=== PATIENT | female | born 1960 | race Caucasian/White ===

== ENCOUNTER → 2016-12-05 | Outpatient (CLI) | payer OTHER ==
[~2016-12-05] MED LIST: ASCO500C; ESOM40CA; IBUP200T43 PO; LEVO137T3; OMEG500C3; [UNRECOGNIZED DRUG - CODE]; [UNRECOGNIZED DRUG - OTHER]
--- NOTE | 2016-12-05 16:57 | RAD ---
Right thumb, 3 views, 12/05/2016: History: Pain There is patchy bony demineralization. No fracture or dislocation is evident. There is minimal degenerative change at the MCP, CMC and IP joints. IMPRESSION: No acute bony abnormality is detected.
== END | disposition home or self-care (01) ==
LOC: DXRADRC 15:01
PROVIDERS: ATTEND Nurse Practitioner Family
DX: M79.644 Pain in right finger(s) (principal)
CPT/HCPCS: 73140

== ENCOUNTER 2017-02-11 02:38 | Emergency (ER) | payer OTHER ==
[~2017-02-11] VITALS: Ht 168.9 cm; Wt 68.0 kg
[2017-02-11 02:38] VITALS: BP 129/85
--- NOTE | 2017-02-11 02:55 | ED.ADGEN ---
Past History Past Medical History: Hypothyroid Past Surgical History: Appendectomy, Tubal ligation, Other Smoking: Less than 1pk/day Alcohol Use: Occasionally Drug Use: None Adult General HPI HPI Patient is a 56-year-old woman, with history of hypothyroidism, prediabetes, hypercholesterolemia, and tobacco use, who presents emergency Department with a complaint of "feeling like my heart is beating out of my chest", but has been occurring over the past several weeks. Patient states tenderness been essentially constant since it began, she denies any initial triggers that she can recall. Currently patient states she is expressing the symptoms, heart rate in the monitor is noted to be sinus rhythm in the 70s to 80s. Blood pressure is 125/83, oxygen saturation is 97% on room air. Respiratory rate is 18 and unlabored. Patient states that her symptoms have been persistent over the past several weeks, she states that she when she got up to use the restroom tonight, she felt like she "couldn't take it anymore" which prompted her to come to the ED. She also states that she been experiencing some soreness in her right neck, over the past 2 days. This is been intermittent, worse with motion, and states that the symptoms feel better when she presses against the muscles of the neck, soreness extends down to clavicle level. Denies any injuries or inciting events. States that she recently got a new job and insurance, and has not spoken to her primary care provider about these issues. She states that she has been compliant with all medications as prescribed. No shortness of breath, nausea or vomiting, no diaphoresis, no lightheadedness, dizziness, presyncopal or syncopal events, no injuries, no travel or surgery, no rashes, no upper or lower respiratory type symptoms, no swelling of the extremities, no urinary symptoms or GI complaints. She denies similar symptoms previously. His face cigarette smoker stated, states that she did have "a few drinks tonight", states she does not drink daily, denies any drug use. Review of Systems Review of Systems Constitutional: Denies fever or chills [] Eyes: Denies change in visual acuity, redness, or eye pain [] HENT: Denies nasal congestion or sore throat [] Respiratory: Denies cough or shortness of breath [] Cardiovascular: Palpitations. GI: Denies abdominal pain, nausea, vomiting, bloody stools or diarrhea [] : Denies dysuria or hematuria [] Musculoskeletal: Denies back pain or joint pain [] Integument: Denies rash or skin lesions [] Neurologic: Denies headache, focal weakness or sensory changes [] Endocrine: Denies polyuria or polydipsia [] Current Medications Current Medications Current Medications Medications (Trade) Dose Ordered Sig/Elizabeth Start Time Stop Time Status Last Admin Dose Admin Acetaminophen (Tylenol) 500 mg STK-MED ONCE 02/11/17 02:58 02/11/17 02:59 DC Fentanyl Citrate (Fentanyl 2ml Vial) 25 mcg PRN Q15MIN PRN 02/11/17 03:00 02/12/17 02:59 Nitroglycerin (Nitrostat) 0.4 mg PRN Q5MIN PRN 02/11/17 03:00 02/12/17 02:59 Allergies Allergies Allergies Coded Allergies Type Severity Reaction Last Updated Verified codeine Allergy Unknown 09/24/13 Yes morphine Allergy Unknown 09/24/13 Yes Physical Exam Physical Exam Constitutional: Well developed, well nourished, no acute distress, non-toxic appearance. [] HENT: Normocephalic, atraumatic, bilateral external ears normal, oropharynx moist, no oral exudates, nose normal. [] Eyes: PERRLA, EOMI, conjunctiva normal, no discharge. [] Neck: Normal range of motion, patient with tenderness to palpation along the sternocleidomastoid on the right side beginning at the insertion point and extending down to the patient's clavicle. There is no evidence of trauma or other abnormality, no tissue tension or muscle spasm, no lymphadenopathy or other concerning findings, supple, no stridor. [] Cardiovascular:Heart rate regular rhythm, no murmur, S1, S2, rubs or gallops. No chest wall crepitus or tenderness. Pulses are equal 3+ in all 4 extremities. [] Lungs & Thorax: Bilateral breath sounds clear to auscultation, no wheezing, rhonchi, rales. No chest wall tenderness or crepitus. No lesions are normalities identified. [] Abdomen: Bowel sounds normal, soft, no rebound, rigidity, no guarding, no tenderness, no masses, no pulsatile masses. [] Skin: Warm, dry, no erythema, no rash. [] Back: No tenderness, no CVA tenderness. [] Extremities: No tenderness, no cyanosis, no clubbing, ROM intact, no edema. Negative Homans sign. Neurologic: Alert and oriented X 3, normal motor function, normal sensory function, no focal deficits noted. [] Psychologic: Affect normal, judgement normal, mood normal. [] Current Patient Data Vital Signs Vital Signs Date Time Temp Pulse Resp B/P (MAP) Pulse Ox O2 Delivery O2 Flow Rate FiO2 02/11/17 02:38 98.0 79 18 96 Room Air Lab Results Laboratory Tests Test 02/11/17 02:50 02/11/17 02:55 White Blood Count 5.4 x10^3/uL (4.0-11.0) Red Blood Count 4.23 x10^6/uL (3.50-5.40) Hemoglobin 13.6 g/dL (12.0-15.5) Hematocrit 39.2 % (36.0-47.0) Mean Corpuscular Volume 93 fL (79-100) Mean Corpuscular Hemoglobin 32 pg (25-35) Mean Corpuscular Hemoglobin Concent 35 g/dL (31-37) Red Cell Distribution Width 12.2 % (11.5-14.5) Platelet Count 226 x10^3/uL (140-400) Neutrophils (%) (Auto) 30 % (31-73) L Lymphocytes (%) (Auto) 57 % (24-48) H Monocytes (%) (Auto) 8 % (0-9) Eosinophils (%) (Auto) 3 % (0-3) Basophils (%) (Auto) 1 % (0-3) Neutrophils # (Auto) 1.6 x10^3uL (1.8-7.7) L Lymphocytes # (Auto) 3.1 x10^3/uL (1.0-4.8) Monocytes # (Auto) 0.4 x10^3/uL (0.0-1.1) Eosinophils # (Auto) 0.2 x10^3/uL (0.0-0.7) Basophils # (Auto) 0.1 x10^3/uL (0.0-0.2) Sodium Level 143 mmol/L (136-145) Potassium Level 3.6 mmol/L (3.5-5.1) Chloride Level 105 mmol/L (98-107) Carbon Dioxide Level 28 mmol/L (21-32) Anion Gap 10 (6-14) Blood Urea Nitrogen 7 mg/dL (7-20) Creatinine 0.8 mg/dL (0.6-1.0) Estimated GFR (Cockcroft-Gault) 73.7 BUN/Creatinine Ratio 9 (6-20) Glucose Level 99 mg/dL (70-99) Calcium Level 9.2 mg/dL (8.5-10.1) Total Bilirubin 0.4 mg/dL (0.2-1.0) Aspartate Amino Transferase (AST) 11 U/L (15-37) L Alanine Aminotransferase (ALT) 20 U/L (14-59) Alkaline Phosphatase 88 U/L (46-116) Troponin I Quantitative < 0.017 ng/mL (0-0.055) HL-Qep-D-Type Natriuretic Peptide 63 pg/mL (0-124) Total Protein 7.3 g/dL (6.4-8.2) Albumin 4.0 g/dL (3.4-5.0) Albumin/Globulin Ratio 1.2 (1.0-1.7) Ethyl Alcohol Level < 10 mg/dL (0-10) Urine Opiates Screen Neg (NEG) Urine Methadone Screen Neg (NEG) Urine Barbiturates Neg (NEG) Urine Phencyclidine Screen Neg (NEG) Urine Amphetamine/Methamphetamine Neg (NEG) Urine Benzodiazepines Screen Neg (NEG) Urine Cocaine Screen Neg (NEG) Urine Cannabinoids Screen Neg (NEG) Urine Ethyl Alcohol Pos (NEG) EKG EKG EC: Sinus rhythm, heart rate 75 beats minute, upright axis, QTC of 447, ID 160, QRS of 86, no ST elevations or depressions, no evidence of acute ST abnormalities. No prior for comparison. As interpreted by me. Radiology/Procedures Radiology/Procedures Chest x-ray: One view: Hyperinflation with mild flattening of the diaphragms bilaterally, normal cardiac silhouette, no infiltrates or effusions, no pneumothorax, no soft tissue or bony abnormalities identified. When compared to chest x-ray from 07/13/2012, no significant changes identified aside from mild increase in hyperinflation. As interpreted by me. [] Course & Med Decision Making Course & Med Decision Making Pertinent Labs and Imaging studies reviewed. (See chart for details) Patient with heart rate in the 70s and 80s while she states she is experiencing the palpitations in the ED. After discussion at bedside, laboratory studies, ECG and chest x-ray obtained. As stated, symptoms been constant for the past several weeks. ECG reveals sinus rhythm with a heart rate of 75, with no abnormalities identified. Chest x-ray reveals evidence of mild hyperinflation no other concerning findings identified. Troponin is negative, patient's UDS was positive for alcohol, but it is less than 10 stated she is clinically sober and appropriate in the ED. Patient received acetaminophen in the emergency department, reevaluation she states that the soreness in her neck is improved. Area is point tender, beginning at the insertion of the sternocleidomastoid the right, I do not believe is indicative of atypical cardiac presentation. She states that she has had "bleeding", with aspirin previously and was told not to use aspirin any longer by her primary care provider. Patient denies any family history of cardiac disease or sudden cardiac , she is not previously seen a glass robot operator. TSH is a send out test, patient informed the results will be obtained tomorrow, will be contacted with any concerning findings. I discussed with the patient that although she is experiencing a feeling of palpitations, heart rate, which we are watching on the monitor is in sinus rhythm in the 70s. Patient states understanding of this finding. She had not experienced any diaphoresis, S pain, shortness breath, or presyncope or other concerning findings. No other concerning history relayed. On examination and her evaluation the ED, there is no evidence of a concerning cardiac or pulmonary etiology for her symptoms. Patient is agreeable to plan to be discharged home, she states that she currently has primary care provider as stated, who she is only seen once previously, Dr. Franco, and she'll be able to follow-up with a glass robot operator for additional evaluation. I did provide contact information for Dr. Lake of cardiology, instructed for her to call in the morning to schedule additional evaluation, although I do not believe that there is any indication for additional evaluation in or from the ED currently, due to her age and predisposing factors, cardiac evaluation is appropriate. Patient declined any other complaints or concerns at this time. Patient voices understanding and agreement with this plan. Patient's boyfriend is here, and she is ready to go home. We did discuss concerning symptoms that prompt return to the emergency department any time, patient voiced understanding and agreement with these instructions well. Discharged home with plan as above in stable condition. Final Impression Final Impression [] Problems: Dragon Disclaimer Dragon Disclaimer This electronic medical record was generated, in whole or in part, using a voice recognition dictation system. Departure: Impression: Primary Impression: Palpitation Disposition: 01 HOME, SELF-CARE Condition: IMPROVED TEETEE CASPER DO Feb 11, 2017 02:55
[2017-02-11] MEDS ORDERED: ACETAMINOPHEN 500 MG TABLET PO ONE ×2 (02:58→03:15)
[2017-02-11] MEDS ORDERED: fentaNYL PF 100 MCG/2 ML VIAL IV PRN (03:00)
[2017-02-11] MEDS ORDERED: NITROGLYCERIN SUBLINGUAL 0.4 MG BOTTLE OF 25. SL PRN (03:00)
[2017-02-11 03:09] LABS: BASO # 0.1 x10^3/uL (0.0-0.2); BASO % 1 % (0-3); EOS # 0.2 x10^3/uL (0.0-0.7); EOS % 3 % (0-3); HEMATOCRIT 39.2 % (36.0-47.0); HEMOGLOBIN 13.6 g/dL (12.0-15.5); LYMPH # 3.1 x10^3/uL (1.0-4.8); LYMPH % 57 % (24-48); MEAN CORPUSCULAR HEMOGLOBIN 32 pg (25-35); MEAN CORPUSCULAR HGB CONC 35 g/dL (31-37); MEAN CORPUSCULAR VOLUME 93 fL (79-100); MONO # 0.4 x10^3/uL (0.0-1.1); MONO % 8 % (0-9); NEUT # 1.6 x10^3uL (1.8-7.7); NEUT % 30 % (31-73); PLATELET COUNT 226 x10^3/uL (140-400); RED BLOOD COUNT 4.23 x10^6/uL (3.50-5.40); RED CELL DISTRIBUTION WIDTH 12.2 % (11.5-14.5); WHITE BLOOD COUNT 5.4 x10^3/uL (4.0-11.0)
[2017-02-11] MEDS ORDERED: ALBU8.5H8 INH (03:12)
[2017-02-11] MEDS ORDERED: MELO15TA23 PO (03:12)
[2017-02-11] MEDS ORDERED: PANT20TA58 PO (03:12)
[2017-02-11] MEDS ORDERED: MOME17SP NS (03:12)
[2017-02-11 03:26] LABS: BARBITURATES NEG (NEG); BENZODIAZEPINES NEG (NEG); CANNABINOIDS NEG (NEG); COCAINE NEG (NEG); METHADONE NEG (NEG); OPIATES NEG (NEG); PHENCYCLIDINE NEG (NEG)
[2017-02-11 03:34] LABS: AMPHETAMINE/METHAMPHETAMINE NEG (NEG)
[2017-02-11 03:35] LABS: ALBUMIN/GLOBULIN RATIO 1.2 (1.0-1.7); CALCIUM 9.2 mg/dL (8.5-10.1); CREATININE 0.8 mg/dL (0.6-1.0); GFR 73.7; POTASSIUM 3.6 mmol/L (3.5-5.1); TOTAL BILIRUBIN 0.4 mg/dL (0.2-1.0); TOTAL PROTEIN 7.3 g/dL (6.4-8.2)
--- NOTE | 2017-02-11 05:59 | EKG ---
[address] [address] Test Date: 2017-02-11 Test Time: 02:57:51 Pat Name: ESHA CANALES Department: Room: Gender: F Care Coordinator: : 1960 Requested By: TEETEE CASPER Order Number: [id number] Reading MD: Measurements Intervals [place] Rate: 75 P: 66 [place]: 160 QRS: 55 QRSD: 86 T: 37 QT: 398 QTc: 447 Interpretive Statements SINUS RHYTHM NORMAL ECG RI6.01 Unconfirmed report No previous ECG available for comparison
--- NOTE | 2017-02-11 07:15 | RAD ---
Portable chest, 02/11/2017: History: Chest pain, palpitations Comparison is made to a study from 07/21/2012. The heart size and pulmonary vascularity are normal. There is scarring over the pulmonary apices. No acute infiltrate is seen. There is no evidence of pleural fluid. IMPRESSION: No acute cardiopulmonary abnormality is detected.
== END 2017-02-11 04:10 | disposition home or self-care (01) ==
LOC: ER 02:38
DX: R00.2 Palpitations (principal); M54.2 Cervicalgia; E03.9 Hypothyroidism, unspecified; F17.200 Nicotine dependence, unspecified, uncomplicated; Z88.6 Allergy status to analgesic agent; Z88.5 Allergy status to narcotic agent
CPT/HCPCS: 36415; 71010; 80053; 80305; 80320; 83880; 84443; 84484; 85027; 93005; G0480; G0481; 99285-25

== ENCOUNTER → 2017-03-13 | Outpatient (CLI) | payer OTHER ==
[2017-02-11 02:38] VITALS: BP 129/85
[~2017-03-13] MED LIST changes: +ALBU8.5H8 INH; +MELO15TA23 PO; +MOME17SP NS; +PANT20TA58 PO
--- NOTE | 2017-03-13 15:43 | RAD ---
INDICATION: TOBACCO ABUSE X 20 YRS COMPARISON: 02/11/2017 FINDINGS: 2 views of chest obtained. No focal airspace consolidation. Mediastinal contour is unremarkable. There is some calcific atherosclerosis suspected. No gross osseous destructive lesion. Degenerative changes spine. IMPRESSION: No definite focal airspace consolidation. Suspected apical pleural thickening or scarring.
== END | disposition home or self-care (01) ==
LOC: DXRADRC 15:16
PROVIDERS: ATTEND Nurse Practitioner Family
DX: M47.899 Other spondylosis, site unspecified (principal); Z72.0 Tobacco use
CPT/HCPCS: 71020

== ENCOUNTER → 2017-10-29 | Outpatient (CLI) | payer OTHER ==
[~2017-10-29] MED LIST changes: -IBUP200T43 PO; +IBUP200T44 PO
--- NOTE | 2017-10-30 12:09 | RAD ---
DATE: October 29, 2017 EXAM: MAMMO RUFUS SCREENING BILATERAL HISTORY: Screening study. COMPARISON: 2014 and 2016 This study was interpreted with the benefit of Computerized Aided Detection (CAD). 2-D digital mammographic views of both breasts were performed in the CC and MLO projections. 3-D digital tomosynthesis images of both breasts were performed in the CC and MLO projections and reviewed on a computer workstation. FINDINGS: The breast parenchyma is very dense. There are no dominant suspicious masses, suspicious microcalcifications or evidence of architectural distortion. IMPRESSION: No mammographic indicators for malignancy. BI-RADS CATEGORY: 1 NEGATIVE RECOMMENDED FOLLOW-UP: 12M 12 MONTH FOLLOW-UP PQRS compliance statement: Patient information was entered into a reminder system with a target due date October 30, 2018 for the next mammogram. Mammography is a sensitive method for finding small breast cancers, but it does not detect them all and is not a substitute for careful clinical examination. A negative mammogram does not negate a clinically suspicious finding and should not result in delay in biopsying a clinically suspicious abnormality. "Our facility is accredited by the [employer] Mammography Program." The patient's breast density may affect the ability of mammography to detect breast cancer. There are 4 categories of breast density, A, B, C and D. Breast density A means that most of the breast tissue is replaced with adipose tissue and therefore is not dense. Breast density B means that the breast tissue is mildly dense and scattered. Breast density C means that the breast tissue is heterogeneously dense. Breast density D means that the breast tissue is very dense. Breast densities especially C and D may decrease the sensitivity of mammography to detect breast cancer. Therefore, the patient may benefit from 3-D breast mammography (3D breast tomography) as a part of their screening mammogram. Insurance may or may not pay for this additional imaging. The patient's breast density based on today's mammogram is category D.
== END | disposition home or self-care (01) ==
LOC: MAMMO 14:58
PROVIDERS: ATTEND Nurse Practitioner Family
DX: Z12.31 Encounter for screening mammogram for malignant neoplasm of breast (principal); F17.200 Nicotine dependence, unspecified, uncomplicated
CPT/HCPCS: 77063; 77067

== ENCOUNTER 2018-05-06 12:10 | Observation (INO) | payer OTHER ==
[~2018-05-06] VITALS: Ht 170.2 cm; Wt 67.2 kg
[2018-05-06 12:37] LABS: BASO # 0.1 x10^3/uL (0.0-0.2); BASO % 1 % (0-3); EOS # 0.1 x10^3/uL (0.0-0.7); EOS % 1 % (0-3); HEMATOCRIT 40.6 % (36.0-47.0); HEMOGLOBIN 14.1 g/dL (12.0-15.5); LYMPH % 45 % (24-48); MEAN CORPUSCULAR HEMOGLOBIN 32 pg (25-35); MEAN CORPUSCULAR HGB CONC 35 g/dL (31-37); MEAN CORPUSCULAR VOLUME 93 fL (79-100); MONO # 0.6 x10^3/uL (0.0-1.1); MONO % 9 % (0-9); NEUT % 45 % (31-73); PLATELET COUNT 251 x10^3/uL (140-400); RED BLOOD COUNT 4.38 x10^6/uL (3.50-5.40); RED CELL DISTRIBUTION WIDTH 12.3 % (11.5-14.5); WHITE BLOOD COUNT 6.8 x10^3/uL (4.0-11.0)
[2018-05-06 12:50] LABS: ALBUMIN 4.5 g/dL (3.4-5.0); CALCIUM 9.6 mg/dL (8.5-10.1); CREATININE 0.9 mg/dL (0.6-1.0); DIRECT BILIRUBIN 0.1 mg/dL (0.0-0.2); GFR 63.9; POTASSIUM 3.6 mmol/L (3.5-5.1); TOTAL BILIRUBIN 0.6 mg/dL (0.2-1.0); TOTAL PROTEIN 7.8 g/dL (6.4-8.2)
--- NOTE | 2018-05-06 12:55 | PHYS DOC ---
Past History Past Medical History: Arthritis, Asthma, GERD, Hypothyroid, Migraines, Other Past Surgical History: Appendectomy, Tubal ligation, Other Smoking: Less than 1pk/day Alcohol Use: Occasionally Drug Use: None Adult General Chief Complaint Chief Complaint: CHEST PAIN HPI HPI This is a pleasant 58-year-old female presenting the emergency department today with a pressure along the chest that radiates into her back and neck. This been present for about 24 hours. Comes and goes. She is never seen a stator connector or been diagnosed with heart disease. She has a history of high blood cholesterol, family history of heart disease, and history of smoking. She denies unilateral leg swelling hemoptysis or personal history of blood clotting disorders. She denies having diabetes or hypertension. Review of systems is negative for abdominal pain nausea vomiting. She denies diaphoresis. All other review of systems is negative unless otherwise noted in history of present illness. ED course: 58-year-old female presenting the emergency department with chest pain. EKG obtained and reviewed by myself shows sinus rhythm with a regular rate. ST segments show mild ST depression in lead V4 and V5 without any reciprocal elevation. Troponin is negative. Otherwise blood work is unremarkable. I spoke with cardiology team, Kelly CAPUTO. I asked whether they preferred the patient to be admitted to [facility] where there is a catheter lab or here at [facility]. Cardiology recommended [facility] for serial troponins and probable stress test. I spoke with Dr. jimenes accepts patient for admission. Basic bridge orders placed. Review of Systems Review of Systems SEE ABOVE. Allergies Allergies Allergies Coded Allergies Type Severity Reaction Last Updated Verified codeine Allergy Unknown 09/24/13 Yes morphine Allergy Unknown 09/24/13 Yes Physical Exam Physical Exam SEE ABOVE Constitutional: Well developed, well nourished, no acute distress, non-toxic appearance. HENT: Normocephalic, atraumatic, bilateral external ears normal, oropharynx moist, no oral exudates, nose normal. [] Eyes: PERRLA, EOMI, conjunctiva normal, no discharge. Neck: Normal range of motion, no tenderness, supple, no stridor. [] Cardiovascular:Heart rate regular rhythm, no murmur Lungs & Thorax: Bilateral breath sounds clear to auscultation [] Abdomen: Bowel sounds normal, soft, no tenderness, no masses, no pulsatile masses. [] Skin: Warm, dry, no erythema, no rash. [] Back: No tenderness, no CVA tenderness. Extremities: No tenderness, no cyanosis, no clubbing, ROM intact, no edema. [] Neurologic: Alert and oriented X 3, normal motor function, normal sensory function, no focal deficits noted. [] Psychologic: Affect normal, judgement normal, mood normal. [] Current Patient Data Vital Signs Vital Signs Date Time Temp Pulse Resp B/P (MAP) Pulse Ox O2 Delivery O2 Flow Rate FiO2 05/06/18 12:29 98.2 81 18 98 Room Air Lab Results Laboratory Tests Test 05/06/18 12:26 White Blood Count 6.8 x10^3/uL (4.0-11.0) Red Blood Count 4.38 x10^6/uL (3.50-5.40) Hemoglobin 14.1 g/dL (12.0-15.5) Hematocrit 40.6 % (36.0-47.0) Mean Corpuscular Volume 93 fL (79-100) Mean Corpuscular Hemoglobin 32 pg (25-35) Mean Corpuscular Hemoglobin Concent 35 g/dL (31-37) Red Cell Distribution Width 12.3 % (11.5-14.5) Platelet Count 251 x10^3/uL (140-400) Neutrophils (%) (Auto) 45 % (31-73) Lymphocytes (%) (Auto) 45 % (24-48) Monocytes (%) (Auto) 9 % (0-9) Eosinophils (%) (Auto) 1 % (0-3) Basophils (%) (Auto) 1 % (0-3) Neutrophils # (Auto) 3.0 x10^3uL (1.8-7.7) Lymphocytes # (Auto) 3.0 x10^3/uL (1.0-4.8) Monocytes # (Auto) 0.6 x10^3/uL (0.0-1.1) Eosinophils # (Auto) 0.1 x10^3/uL (0.0-0.7) Basophils # (Auto) 0.1 x10^3/uL (0.0-0.2) Sodium Level 138 mmol/L (136-145) Potassium Level 3.6 mmol/L (3.5-5.1) Chloride Level 102 mmol/L (98-107) Carbon Dioxide Level 29 mmol/L (21-32) Anion Gap 7 (6-14) Blood Urea Nitrogen 9 mg/dL (7-20) Creatinine 0.9 mg/dL (0.6-1.0) Estimated GFR (Cockcroft-Gault) 63.9 Glucose Level 95 mg/dL (70-99) Calcium Level 9.6 mg/dL (8.5-10.1) Total Bilirubin 0.6 mg/dL (0.2-1.0) Direct Bilirubin 0.1 mg/dL (0.0-0.2) Aspartate Amino Transferase (AST) 18 U/L (15-37) Alanine Aminotransferase (ALT) 31 U/L (14-59) Alkaline Phosphatase 93 U/L (46-116) Total Protein 7.8 g/dL (6.4-8.2) Albumin 4.5 g/dL (3.4-5.0) Lipase 127 U/L (73-393) EKG EKG [] Radiology/Procedures Radiology/Procedures [] Course & Med Decision Making Course & Med Decision Making Pertinent Labs and Imaging studies reviewed. (See chart for details) [] Dragon Disclaimer Dragon Disclaimer This electronic medical record was generated, in whole or in part, using a voice recognition dictation system. Departure Departure: Impression: Primary Impression: Chest pain Disposition: ADMITTED INPATIENT Admitting Physician: Other ([email or web address]) Condition: STABLE Referrals: HI SIMMONS (PCP) TOBIN DURAN MD May 06, 2018 12:55
--- NOTE | 2018-05-06 12:56 | RAD ---
EXAM: Chest, single view. HISTORY: Shortness of breath. COMPARISON: None. FINDINGS: A frontal view of the chest is obtained. There is no infiltrate, pleural effusion or pneumothorax. The heart is normal in size. There are stable nodular opacities within the right upper lobe likely due to calcified granulomas or partially calcified pleural plaque. IMPRESSION: No acute pulmonary finding. Electronically signed by: Paola Lenz MD (05/06/2018 12:53 PM) [place] [id number]
--- NOTE | 2018-05-06 14:10 | EKG ---
[address] [address] Test Date: 2018-05-06 Test Time: 12:18:30 Pat Name: ESHA CANALES Department: Room: Gender: F Courtesy Bus Driver: : 1960 Requested By: TOBIN DURAN Order Number: [id number] Reading MD: Thaddeus Martin MD Measurements Intervals [place] Rate: 74 P: 64 [place]: 156 QRS: 64 QRSD: 86 T: 39 QT: 380 QTc: 427 Interpretive Statements SINUS RHYTHM Electronically Signed On 05-07-2018 12:24:08 CDT by Thaddeus Martin MD
[2018-05-06 15:17] VITALS: BP 143/86
--- NOTE | 2018-05-06 15:38 | PDOC2 ---
CONSULT Date of Admission DATE: 05/06/18 TIME: 15:36 Reason for Consult: cp History of Present Illness Ms Valdez is a 58 year old female with complaints of chest pressure along bra line and radiating to her back. started at work and had associated mild disorientation. denies other associated symptoms. dyspnea on exertion which is chronic and unchanged. denies lightheadedness or syncope. Reports palpitations with racing sensation noticed more often at night without associated symptoms. She denies congestive symptoms or reduction in functional capacity. Cardiovascular: hyperipidemia Pulmonary: Asthma, COPD, Other (chronic cough) CENTRAL NERVOUS SYSTEM: Migraine GI: GERD, Other (remote history of GIB with use of aspirin and meloxicam) Musculoskeletal: Osteoarthritis, Other (sciatica) Endocrine: Hypothyroidism Past Surgical History: Appendectomy, Breast Biopsy, Tubal Ligation, Other ( carpal tunnel sx bilaterally) Social History tobacco use 1/2 to 3/4 ppd, no significant ETOH, no illicit drugs Current Medications Active Scripts Active Reported Protonix (Pantoprazole Sodium) 20 Mg Tablet.dr 20 Mg PO Nasonex (Mometasone Furoate) 17 Gm [place].pump 2 Sprays NS DAILY Meloxicam 15 Mg Tablet 15 Mg PO Proair Hfa Inhaler (Albuterol Sulfate) 8.5 Gm Hfa.aer.ad 1 Puff INH PRN Q6HRS PRN Fish Oil ([place]-3 Fatty Acids) 500 Mg Capsule Vitamin C (Ascorbic Acid) 500 Mg Capsule.er Motrin Ib (Ibuprofen) 200 Mg Tablet 800 Mg PO DAILY Clarinex (Desloratadine) 2.5 Mg Tab.rapdis Nexium Capsule (Esomeprazole Magnesium) 40 Mg Capsule. Levothyroxine Sodium 137 Mcg Tablet [AlkaSeltzer] Allergies: Coded Allergies: aspirin (Verified Allergy, Mild, 05/06/18) codeine (Verified Allergy, Unknown, 09/24/13) morphine (Verified Allergy, Unknown, 09/24/13) Review of System as per HPI General: Alert, Oriented X3, Cooperative, No acute distress HEENT: Atraumatic, EOMI Lungs: Other (decreased with occ exp wheeze) Heart: Regular rate, Normal S1, Normal S2 Abdomen: Normal bowel sounds, Soft, No tenderness Extremities: No edema, Normal pulses Skin: No rashes Neuro: Normal speech, Strength at 5/5 X4 ext Psych/Mental Status: Mental status NL, Mood NL VITALS Vital Signs Date Time Temp Pulse Resp B/P (MAP) Pulse Ox O2 Delivery O2 Flow Rate FiO2 05/06/18 15:17 98.2 64 20 143/86 (105) 95 Room Air Labs Laboratory Tests Test 05/06/18 12:26 White Blood Count 6.8 x10^3/uL (4.0-11.0) Red Blood Count 4.38 x10^6/uL (3.50-5.40) Hemoglobin 14.1 g/dL (12.0-15.5) Hematocrit 40.6 % (36.0-47.0) Mean Corpuscular Volume 93 fL (79-100) Mean Corpuscular Hemoglobin 32 pg (25-35) Mean Corpuscular Hemoglobin Concent 35 g/dL (31-37) Red Cell Distribution Width 12.3 % (11.5-14.5) Platelet Count 251 x10^3/uL (140-400) Neutrophils (%) (Auto) 45 % (31-73) Lymphocytes (%) (Auto) 45 % (24-48) Monocytes (%) (Auto) 9 % (0-9) Eosinophils (%) (Auto) 1 % (0-3) Basophils (%) (Auto) 1 % (0-3) Neutrophils # (Auto) 3.0 x10^3uL (1.8-7.7) Lymphocytes # (Auto) 3.0 x10^3/uL (1.0-4.8) Monocytes # (Auto) 0.6 x10^3/uL (0.0-1.1) Eosinophils # (Auto) 0.1 x10^3/uL (0.0-0.7) Basophils # (Auto) 0.1 x10^3/uL (0.0-0.2) Sodium Level 138 mmol/L (136-145) Potassium Level 3.6 mmol/L (3.5-5.1) Chloride Level 102 mmol/L (98-107) Carbon Dioxide Level 29 mmol/L (21-32) Anion Gap 7 (6-14) Blood Urea Nitrogen 9 mg/dL (7-20) Creatinine 0.9 mg/dL (0.6-1.0) Estimated GFR (Cockcroft-Gault) 63.9 Glucose Level 95 mg/dL (70-99) Calcium Level 9.6 mg/dL (8.5-10.1) Total Bilirubin 0.6 mg/dL (0.2-1.0) Direct Bilirubin 0.1 mg/dL (0.0-0.2) Aspartate Amino Transf (AST/SGOT) 18 U/L (15-37) Alanine Aminotransferase (ALT/SGPT) 31 U/L (14-59) Alkaline Phosphatase 93 U/L (46-116) Troponin I Quantitative < 0.017 ng/mL (0-0.055) Total Protein 7.8 g/dL (6.4-8.2) Albumin 4.5 g/dL (3.4-5.0) Lipase 127 U/L (73-393) Images EKG sinus rhythm, no acute ischemic changes CXR- no acute abn Assessment/Plan 1. chest pain with mixed features. initial enzymes negative. EKG without acute ischemic changes. will start plavix in light of asa allergy. no beta blockers due to asthma. check lipids, echo and plan for stress in am if Mikel remain negative. 2. hyperlipidemia - check lipids 3. family history of premature coronary disease 4. palpitations - event monitoring outpatient. OZZY FERREIRA APRN May 06, 2018 15:38
[2018-05-06] MEDS ORDERED: NITROGLYCERIN SUBLINGUAL 0.4 MG BOTTLE OF 25. SL PRN (15:45)
[2018-05-06] MEDS ORDERED: ALBUTEROL SULFATE 8GM INHALER. INH PRN (16:00)
[2018-05-06] MEDS ORDERED: LEVO75TA5 PO (16:02)
[2018-05-06] MEDS ORDERED: FLUT1DIS5 IH (16:05)
[2018-05-06] MEDS ORDERED: MOME17SP NS (16:05)
[2018-05-06] MEDS ORDERED: ALBU6.7H IH (16:05)
[2018-05-06] MEDS ORDERED: ALBUTEROL SULFATE 8GM INHALER. IH PRN (16:15)
--- NOTE | 2018-05-06 16:18 | NUR ---
NSG NOTE; ADMISSION ADMIT TO ROOM 113 AT 1505 FROM ED VIA CART ACCOMP BY EMS PERSONNEL PT C/O CHEST PRESSURE X 3 WEEKS
[2018-05-06] MEDS ORDERED: ALBUTEROL SULFATE 2.5 MG/3 ML NEBU. NEB PRN (16:30)
--- NOTE | 2018-05-06 17:14 | NUR ---
NSG NOTE; DR SILVER CONSULT OZZY FERREIRA APRN HERE TO SEE PT THIS AFTERNOON
[2018-05-06 19:18] VITALS: BP 140/82
[2018-05-06] MEDS ORDERED: NON FORMULARY ITEM (Fluticasone/Salmeterol (Advair 500-50 Diskus) 1 PUFF) IH SCH (21:00)
[2018-05-06] MEDS: ALBUTEROL SULFATE 2.5 MG/3 ML NEBU. NEB SCH (21:35)
[2018-05-06] MEDS: BUDESONIDE 0.5 MG/2 ML NEBU NEB SCH (21:35)
[2018-05-06 22:59] VITALS: BP 114/74
[2018-05-07 05:01] VITALS: BP 121/79
[2018-05-07] MEDS: ALBUTEROL SULFATE 2.5 MG/3 ML NEBU. NEB SCH ×2 (05:45→11:22)
[2018-05-07 06:59] LABS: HEMATOCRIT 39.9 % (36.0-47.0); RED BLOOD COUNT 4.28 x10^6/uL (3.50-5.40); RED CELL DISTRIBUTION WIDTH 12.6 % (11.5-14.5); WHITE BLOOD COUNT 5.8 x10^3/uL (4.0-11.0)
[2018-05-07 07:16] LABS: ALBUMIN/GLOBULIN RATIO 1.3 (1.0-1.7); CALCIUM 9.3 mg/dL (8.5-10.1); CREATININE 0.8 mg/dL (0.6-1.0); GFR 73.2; POTASSIUM 3.8 mmol/L (3.5-5.1); TOTAL BILIRUBIN 0.8 mg/dL (0.2-1.0); TOTAL PROTEIN 7.1 g/dL (6.4-8.2)
[2018-05-07] MEDS ORDERED: REGADENOSON 0.4 MG/5 ML DISP.SYRIN. IV ONE (07:30)
[2018-05-07] MEDS ORDERED: LEVOTHYROXINE 75 MCG TABLET PO SCH (07:30)
--- NOTE | 2018-05-07 07:57 | CARD ---
MR#: [id number] Date of Study: 05/06/2018 Ordering Physician: ASIYA MARIA, Referring Physician: ASIYA MARIA, Tech: Mirian Dolan APPROVED REPORT EXAM: Two-dimensional and M-mode echocardiogram with Doppler and color Doppler. Other Information Quality : AverageHR: 78bpm INDICATION Chest Pain RISK FACTORS Hyperlipidemia Smoking 2D DIMENSIONS RVDd2.1 (2.9-3.5cm)Left Atrium(2D)2.6 (1.6-4.0cm) IVSd0.9 (0.7-1.1cm)Aortic Root(2D)3.2 (2.0-3.7cm) LVDd4.5 (3.9-5.9cm)LVOT Diameter2.0 (1.8-2.4cm) PWd0.9 (0.7-1.1cm)LVDs2.5 (2.5-4.0cm) FS (%) 43.4 %SV67.9 ml LVEF(%)74.8 (>50%) Aortic Valve AoV Peak Ace.140.4cm/sAoV VTI27.0cm AO Peak GR.7.9mmHgLVOT Peak Ace.109.3cm/s LVOT VTI 20.66cmAO Mean GR.4mmHg ROCHELLE (VMAX)2.49yv1TZB (VTI)2.37cm2 Mitral Valve MV E Hgyjmzad29.5cm/sMV DECEL [id number] MV A Vwncuwyq96.5cm/sE/A Ratio0.9 Tricuspid Valve TR P. Xjxvntym771bm/sRAP [id number] TR Peak Gr.14riOxFAGQ85itDr LEFT VENTRICLE The left ventricle is normal size. There is normal left ventricular wall thickness. The left ventricu lar systolic function is normal The Ejection Fraction is 65-70%. There is normal LV segmental wall mo tion. Transmitral Doppler flow pattern is Grade I-abnormal relaxation pattern. RIGHT VENTRICLE The right ventricle is normal size. There is normal right ventricular wall thickness. The right ventr icular systolic function is normal. ATRIA The left atrium size is normal. The right atrium size is normal. The interatrial septum is intact wit h no evidence for an atrial septal defect or patent foramen ovale as noted on 2-D or Doppler imaging. AORTIC VALVE The aortic valve is normal in structure and function. Doppler and Color Flow revealed trace aortic re gurgitation. There is no significant aortic valvular stenosis. MITRAL VALVE The mitral valve is normal in structure and function. There is no mitral valve stenosis. Doppler and Color-flow revealed trace mitral regurgitation. TRICUSPID VALVE The tricuspid valve is normal in structure and function. Doppler and Color Flow revealed trace tricus pid regurgitation. There is no tricuspid valve stenosis. PULMONIC VALVE The pulmonic valve is not well visualized. Doppler and Color Flow revealed no pulmonic valvular regur gitation. GREAT VESSELS The aortic root is normal in size. The IVC is normal in size and collapses >50% with inspiration. PERICARDIAL EFFUSION There is no evidence of significant pericardial effusion. Critical Notification Critical Value: No <Conclusion> The left ventricular systolic function is normal The Ejection Fraction is 65-70%. There is normal LV segmental wall motion. Trace mitral regurgitation. Trace tricuspid regurgitation. There is no evidence of significant pericardial effusion. Signed by : Anthony Call, Electronically Approved : 05/07/2018 07:56:17
[2018-05-07] MEDS ORDERED: CLOPIDOGREL BISULFATE 75 MG TABLET PO SCH (08:00)
--- NOTE | 2018-05-07 08:53 | PDOC ---
PROGRESS NOTES Diagnosis Problem Problems Medical Problems: (1) Chest pain Status: Acute Assessment Problems Medical Problems: (1) Chest pain Status: Acute 1. CP - ME ruled out. MPI this am. Continue plavix in light of ASA allergy. no beta blockers due to asthma. normal LV function and wall motion by echo. home from CV standpoint if MPI negative with 1 month follow up. 2. hyperlipidemia - lipids pending 3. family history of premature coronary disease 4. palpitations - event monitoring outpatient. 5. tobaccoism - cessation encouraged Subjective no new cp. breathing ok. no palpitations, lightheadedness or congestive symptoms. "ready to go home" Objective Vital Signs Date Time Temp Pulse Resp B/P (MAP) Pulse Ox O2 Delivery O2 Flow Rate FiO2 05/07/18 05:45 95 Room Air 05/07/18 05:01 98.0 79 20 121/79 (93) Intake and Output 05/07/18 07:00 Intake Total 730 ml Balance 730 ml Intake Oral 730 ml # Voids 4 # Bowel Movements 1 Abdomen: Normal bowel sounds, Soft, No tenderness Heart: Regular rate, Normal S1, Normal S2 Extremities: No cyanosis, No edema, Normal pulses General: Alert, Oriented X3, Cooperative, No acute distress HEENT: Atraumatic, EOMI Lungs: Other (decreased with no crackles, ronchi or significant wheezing) Neck: No JVD Neuro: Normal speech, Strength at 5/5 X4 ext Psych/Mental Status: Mental status NL, Mood NL Review of Relevant I have reviewed the following items keyon (where applicable) has been applied. Labs Laboratory Tests Test 05/06/18 12:26 05/06/18 18:55 05/07/18 00:30 05/07/18 06:00 White Blood Count 6.8 x10^3/uL (4.0-11.0) 5.8 x10^3/uL (4.0-11.0) Red Blood Count 4.38 x10^6/uL (3.50-5.40) 4.28 x10^6/uL (3.50-5.40) Hemoglobin 14.1 g/dL (12.0-15.5) 14.0 g/dL (12.0-15.5) Hematocrit 40.6 % (36.0-47.0) 39.9 % (36.0-47.0) Mean Corpuscular Volume 93 fL (79-100) 93 fL (79-100) Mean Corpuscular Hemoglobin 32 pg (25-35) 33 pg (25-35) Mean Corpuscular Hemoglobin Concent 35 g/dL (31-37) 35 g/dL (31-37) Red Cell Distribution Width 12.3 % (11.5-14.5) 12.6 % (11.5-14.5) Platelet Count 251 x10^3/uL (140-400) 215 x10^3/uL (140-400) Neutrophils (%) (Auto) 45 % (31-73) Lymphocytes (%) (Auto) 45 % (24-48) Monocytes (%) (Auto) 9 % (0-9) Eosinophils (%) (Auto) 1 % (0-3) Basophils (%) (Auto) 1 % (0-3) Neutrophils # (Auto) 3.0 x10^3uL (1.8-7.7) Lymphocytes # (Auto) 3.0 x10^3/uL (1.0-4.8) Monocytes # (Auto) 0.6 x10^3/uL (0.0-1.1) Eosinophils # (Auto) 0.1 x10^3/uL (0.0-0.7) Basophils # (Auto) 0.1 x10^3/uL (0.0-0.2) Sodium Level 138 mmol/L (136-145) 138 mmol/L (136-145) Potassium Level 3.6 mmol/L (3.5-5.1) 3.8 mmol/L (3.5-5.1) Chloride Level 102 mmol/L (98-107) 102 mmol/L (98-107) Carbon Dioxide Level 29 mmol/L (21-32) 27 mmol/L (21-32) Anion Gap 7 (6-14) 9 (6-14) Blood Urea Nitrogen 9 mg/dL (7-20) 10 mg/dL (7-20) Creatinine 0.9 mg/dL (0.6-1.0) 0.8 mg/dL (0.6-1.0) Estimated GFR (Cockcroft-Gault) 63.9 73.2 Glucose Level 95 mg/dL (70-99) 99 mg/dL (70-99) Calcium Level 9.6 mg/dL (8.5-10.1) 9.3 mg/dL (8.5-10.1) Total Bilirubin 0.6 mg/dL (0.2-1.0) 0.8 mg/dL (0.2-1.0) Direct Bilirubin 0.1 mg/dL (0.0-0.2) Aspartate Amino Transf (AST/SGOT) 18 U/L (15-37) 21 U/L (15-37) Alanine Aminotransferase (ALT/SGPT) 31 U/L (14-59) 33 U/L (14-59) Alkaline Phosphatase 93 U/L (46-116) 75 U/L (46-116) Troponin I Quantitative < 0.017 ng/mL (0-0.055) < 0.017 ng/mL (0-0.055) < 0.017 ng/mL (0-0.055) Total Protein 7.8 g/dL (6.4-8.2) 7.1 g/dL (6.4-8.2) Albumin 4.5 g/dL (3.4-5.0) 4.0 g/dL (3.4-5.0) Lipase 127 U/L (73-393) BUN/Creatinine Ratio 13 (6-20) Albumin/Globulin Ratio 1.3 (1.0-1.7) Medications Current Medications Nitroglycerin (Nitrostat) 0.4 mg PRN Q5MIN PRN SL CHEST PAIN; Start 05/06/18 at 15:45 Clopidogrel Bisulfate (Plavix) 75 mg DAILYWBKFT PO ; Start 05/07/18 at 08:00 Albuterol Sulfate (Ventolin Hfa Inhaler) 1 puff PRN Q6HRS PRN INH SHORTNESS OF BREATH; Start 05/06/18 at 16:00; Status UNV Levothyroxine Sodium (Synthroid) 75 mcg DAILYAC PO ; Start 05/07/18 at 07:30 Meloxicam (Mobic) 7.5 mg DAILY PO ; Start 05/07/18 at 09:00 Pantoprazole Sodium (Protonix) 40 mg DAILY PO ; Start 05/07/18 at 09:00 Albuterol Sulfate (Ventolin Hfa Inhaler) 1 puff PRN Q4HRS PRN IH FOR ASTHMA; Start 05/06/18 at 16:15; Status UNV Non-Formulary Medication (Fluticasone/ Salmeterol (Advair 500-50 Diskus)) 1 puff BID IH ; Start 05/06/18 at 21:00; Status UNV Albuterol Sulfate (Ventolin) 2.5 mg PRN Q4HRS PRN NEB SHORTNESS OF BREATH; Start 05/06/18 at 16:30 Albuterol Sulfate (Ventolin) 2.5 mg RTQID NEB Last administered on 05/07/18at 05 :45; Start 05/06/18 at 20:00 Budesonide (Pulmicort) 0.5 mg RTBID NEB Last administered on 05/06/18at 21:35; Start 05/06/18 at 20:00 Regadenoson (Lexiscan) 0.4 mg 1X ONCE IV ; Start 05/07/18 at 07:30; Stop at 07:31; Status DC Active Scripts Active Reported Nasonex (Mometasone Furoate) 17 Gm Saline.pump 2 Spr NS DAILY Proventil Hfa Inhaler (Albuterol Sulfate) 6.7 Gm Hfa.aer.ad 1 Puff IH PRN Q4HRS PRN Advair 500-50 Diskus (Fluticasone/Salmeterol) 1 Each Disk.w.dev 1 Puff IH BID Levothyroxine Sodium 75 Mcg Tablet 75 Mcg PO DAILYAC Protonix (Pantoprazole Sodium) 20 Mg Tablet.dr 20 Mg PO DAILY Meloxicam 15 Mg Tablet 0.5 Tab PO DAILY Proair Hfa Inhaler (Albuterol Sulfate) 8.5 Gm Hfa.aer.ad 1 Puff INH PRN Q6HRS PRN Vitals/I & O Vital Sign - Last 24 Hours 05/06/18 05/06/18 05/06/18 05/06/18 12:29 12:55 12:56 13:42 Temp 98.2 Pulse 81 68 Resp 18 18 B/P (MAP) 116/72 (87) 128/75 (92) 119/81 (94) Pulse Ox 98 98 O2 Delivery Room Air Room Air 05/06/18 05/06/18 05/06/18 05/06/18 15:17 15:42 19:18 20:00 Temp 98.2 98.3 Pulse 64 65 Resp 20 18 B/P (MAP) 143/86 (105) 140/82 (101) Pulse Ox 95 96 O2 Delivery Room Air Room Air Room Air 05/06/18 05/06/18 05/06/18 05/07/18 21:35 21:39 22:59 05:01 Temp 98.4 98.0 Pulse 83 79 Resp 18 20 B/P (MAP) 114/74 (87) 121/79 (93) Pulse Ox 97 97 91 94 O2 Delivery Room Air Room Air Room Air Room Air 05/07/18 05:45 Pulse Ox 95 O2 Delivery Room Air Intake and Output 05/06/18 05/06/18 05/07/18 15:00 23:00 07:00 Intake Total 730 ml Balance 730 ml OZZY FERREIRA APRN May 07, 2018 08:53
[2018-05-07] MEDS ORDERED: PANTOPRAZOLE 40 MG TABLET. PO SCH (09:00)
[2018-05-07] MEDS ORDERED: MELOXICAM 7.5 MG TABLET PO SCH (09:00)
--- NOTE | 2018-05-07 09:30 | PDOC1 ---
History of Present Illness History of Present Illness Patient is a 58-year-old female who presented to the emergency department complaining of chest pressure. Patient presented to the emergency department with 24 hours worsening anterior chest discomfort described as a pressure radiating to her back and neck. Symptoms described as moderate to severe, intermittent. She has no prior episodes of chest discomfort symptoms not specifically related to exertion. EKG was normal sinus rhythm with nonspecific ST depression in V4 and 5 without reciprocal changes, chest x-ray and labs were unremarkable. Due to risk factors and severity of symptoms the emergency department physician consult did cardiology who recommended observation admission with MPI this morning. I find the patient sitting up in bed eating her lunch after coming back from her stress test. She still has mild chest pressure symptoms which are different than her baseline respiratory symptoms, her cardiac enzymes and echocardiogram were normal. Through questioning the patient admits to a great deal of increased stress recently with the failing health of her mother. No new or changing symptoms otherwise through the night her vital signs are been stable. PCP is Lindsay Alegria Chief Complaint: CHEST PAIN Allergies: Coded Allergies: aspirin (Verified Allergy, Intermediate, 05/07/18) codeine (Verified Allergy, Intermediate, 05/07/18) morphine (Verified Allergy, Intermediate, 05/07/18) Past Medical History Cardiac: hyperipidemia Pulmonary: Asthma, COPD, Other (chronic cough) GI: GERD, Other (remote history of GIB with use of aspirin and meloxicam) Musculoskeletal: Osteoarthritis, Other (sciatica) Endocrine: Hypothyroidism Past Surgical History: Appendectomy (, tubal ligation, breast biopsy, carpal tunnel) Past Social History Smoke: <1 pack per day Alcohol: none Drugs: None Review of Systems Review Of Systems Fourteen system , review of systems has been reviewed. See HPI for pertinent positives and negative responses, other boyce all other systems are negative, non pertinent or non contributory Constitutional: No: Fever, Chills, Sweats, Weakness Eyes: No: Decreased vision, Eye Pain, Photophobia ENT: No: Ear pain, Nose pain, Throat pain Respiratory: YES: Cough, SOB with excertion (symptoms are at her asthma/COPD baseline) Cardiovascular: yes: Other (see history of present illness) Gastrointestinal: No: Nausea, Vomiting, Abdominal Pain, Diarrhea Musculoskeletal: No: Gait Disturbance, Joint Stiffness, Joint Swelling SKIN: YES: Warm, Dry, No Rashes Neurological: No: Headaches, Memory Loss, Seizures Medications Current Medications Nitroglycerin (Nitrostat) 0.4 mg PRN Q5MIN PRN SL CHEST PAIN; Start 05/06/18 at 15:45 Clopidogrel Bisulfate (Plavix) 75 mg DAILYWBKFT PO ; Start 05/07/18 at 08:00 Albuterol Sulfate (Ventolin Hfa Inhaler) 1 puff PRN Q6HRS PRN INH SHORTNESS OF BREATH; Start 05/06/18 at 16:00; Status UNV Levothyroxine Sodium (Synthroid) 75 mcg DAILYAC PO ; Start 05/07/18 at 07:30 Meloxicam (Mobic) 7.5 mg DAILY PO ; Start 05/07/18 at 09:00 Pantoprazole Sodium (Protonix) 40 mg DAILY PO ; Start 05/07/18 at 09:00 Albuterol Sulfate (Ventolin Hfa Inhaler) 1 puff PRN Q4HRS PRN IH FOR ASTHMA; Start 05/06/18 at 16:15; Status UNV Non-Formulary Medication (Fluticasone/ Salmeterol (Advair 500-50 Diskus)) 1 puff BID IH ; Start 05/06/18 at 21:00; Status UNV Albuterol Sulfate (Ventolin) 2.5 mg PRN Q4HRS PRN NEB SHORTNESS OF BREATH; Start 05/06/18 at 16:30 Albuterol Sulfate (Ventolin) 2.5 mg RTQID NEB Last administered on 05/07/18at 05 :45; Start 05/06/18 at 20:00 Budesonide (Pulmicort) 0.5 mg RTBID NEB Last administered on 05/06/18at 21:35; Start 05/06/18 at 20:00 Regadenoson (Lexiscan) 0.4 mg 1X ONCE IV ; Start 05/07/18 at 07:30; Stop at 07:31; Status DC Active Scripts Active Reported Nasonex (Mometasone Furoate) 17 Gm [place].pump 2 Spr NS DAILY Proventil Hfa Inhaler (Albuterol Sulfate) 6.7 Gm Hfa.aer.ad 1 Puff IH PRN Q4HRS PRN Advair 500-50 Diskus (Fluticasone/Salmeterol) 1 Each Disk.w.dev 1 Puff IH BID Levothyroxine Sodium 75 Mcg Tablet 75 Mcg PO DAILYAC Protonix (Pantoprazole Sodium) 20 Mg Tablet.dr 20 Mg PO DAILY Meloxicam 15 Mg Tablet 0.5 Tab PO DAILY Proair Hfa Inhaler (Albuterol Sulfate) 8.5 Gm Hfa.aer.ad 1 Puff INH PRN Q6HRS PRN Exam Vital Signs Vital Signs Date Time Temp Pulse Resp B/P (MAP) Pulse Ox O2 Delivery O2 Flow Rate FiO2 05/07/18 05:45 95 Room Air 05/07/18 05:01 98.0 79 20 121/79 (93) General Appearance: Alert, Oriented X3, No acute distress HEENT: Atraumatic, PERRLA, EOMI, Mucous membr. moist/pink Respiratory: Clear to auscultation, Normal air movement Heart: Regular rate, Normal S1, Normal S2, No murmurs Abdominal: Normal bowel sounds, Soft, No tenderness Extremities: No clubbing, No cyanosis, No edema Neuro: Normal speech, Normal tone, Sensation intact, Cranial nerves 3-12 NL Psych/Mental Status: Mental status NL, Mood NL Assessment/Plan Assessment/Plan Noncardiac chest pain, possible physical manifestation of increased stressors Tobaccoism History of hyperlipidemia, asthma, GERD, osteoarthritis, and hypothyroidism ( TSH wnl this am) Strongly encourage discontinue tobacco abuse. Follow-up with your PCP this week and cardiology per their recommendations Continue home medications COURSE Allergies Coded Allergies Type Severity Reaction Last Updated Verified aspirin Allergy Intermediate 05/07/18 Yes codeine Allergy Intermediate 05/07/18 Yes morphine Allergy Intermediate 05/07/18 Yes Laboratory Tests Test 05/06/18 12:26 05/06/18 18:55 05/07/18 00:30 05/07/18 06:00 White Blood Count 6.8 x10^3/uL (4.0-11.0) 5.8 x10^3/uL (4.0-11.0) Red Blood Count 4.38 x10^6/uL (3.50-5.40) 4.28 x10^6/uL (3.50-5.40) Hemoglobin 14.1 g/dL (12.0-15.5) 14.0 g/dL (12.0-15.5) Hematocrit 40.6 % (36.0-47.0) 39.9 % (36.0-47.0) Mean Corpuscular Volume 93 fL (79-100) 93 fL (79-100) Mean Corpuscular Hemoglobin 32 pg (25-35) 33 pg (25-35) Mean Corpuscular Hemoglobin Concent 35 g/dL (31-37) 35 g/dL (31-37) Red Cell Distribution Width 12.3 % (11.5-14.5) 12.6 % (11.5-14.5) Platelet Count 251 x10^3/uL (140-400) 215 x10^3/uL (140-400) Neutrophils (%) (Auto) 45 % (31-73) Lymphocytes (%) (Auto) 45 % (24-48) Monocytes (%) (Auto) 9 % (0-9) Eosinophils (%) (Auto) 1 % (0-3) Basophils (%) (Auto) 1 % (0-3) Neutrophils # (Auto) 3.0 x10^3uL (1.8-7.7) Lymphocytes # (Auto) 3.0 x10^3/uL (1.0-4.8) Monocytes # (Auto) 0.6 x10^3/uL (0.0-1.1) Eosinophils # (Auto) 0.1 x10^3/uL (0.0-0.7) Basophils # (Auto) 0.1 x10^3/uL (0.0-0.2) Sodium Level 138 mmol/L (136-145) 138 mmol/L (136-145) Potassium Level 3.6 mmol/L (3.5-5.1) 3.8 mmol/L (3.5-5.1) Chloride Level 102 mmol/L (98-107) 102 mmol/L (98-107) Carbon Dioxide Level 29 mmol/L (21-32) 27 mmol/L (21-32) Anion Gap 7 (6-14) 9 (6-14) Blood Urea Nitrogen 9 mg/dL (7-20) 10 mg/dL (7-20) Creatinine 0.9 mg/dL (0.6-1.0) 0.8 mg/dL (0.6-1.0) Estimated GFR (Cockcroft-Gault) 63.9 73.2 Glucose Level 95 mg/dL (70-99) 99 mg/dL (70-99) Calcium Level 9.6 mg/dL (8.5-10.1) 9.3 mg/dL (8.5-10.1) Total Bilirubin 0.6 mg/dL (0.2-1.0) 0.8 mg/dL (0.2-1.0) Direct Bilirubin 0.1 mg/dL (0.0-0.2) Aspartate Amino Transf (AST/SGOT) 18 U/L (15-37) 21 U/L (15-37) Alanine Aminotransferase (ALT/SGPT) 31 U/L (14-59) 33 U/L (14-59) Alkaline Phosphatase 93 U/L (46-116) 75 U/L (46-116) Troponin I Quantitative < 0.017 ng/mL (0-0.055) < 0.017 ng/mL (0-0.055) < 0.017 ng/mL (0-0.055) Total Protein 7.8 g/dL (6.4-8.2) 7.1 g/dL (6.4-8.2) Albumin 4.5 g/dL (3.4-5.0) 4.0 g/dL (3.4-5.0) Lipase 127 U/L (73-393) BUN/Creatinine Ratio 13 (6-20) Albumin/Globulin Ratio 1.3 (1.0-1.7) Current Medications Medications (Trade) Dose Ordered Sig/Elizabeth Route PRN Reason Start Time Stop Time Status Last Admin Dose Admin Nitroglycerin (Nitrostat) 0.4 mg PRN Q5MIN PRN SL CHEST PAIN 05/06/18 15:45 Clopidogrel Bisulfate (Plavix) 75 mg DAILYWBKFT PO 05/07/18 08:00 Albuterol Sulfate (Ventolin Hfa Inhaler) 1 puff PRN Q6HRS PRN INH SHORTNESS OF BREATH 05/06/18 16:00 UNV Levothyroxine Sodium (Synthroid) 75 mcg DAILYAC PO 05/07/18 07:30 Meloxicam (Mobic) 7.5 mg DAILY PO 05/07/18 09:00 Pantoprazole Sodium (Protonix) 40 mg DAILY PO 05/07/18 09:00 Albuterol Sulfate (Ventolin Hfa Inhaler) 1 puff PRN Q4HRS PRN IH FOR ASTHMA 05/06/18 16:15 UNV Non-Formulary Medication (Fluticasone/ Salmeterol (Advair 500-50 Diskus)) 1 puff BID IH 05/06/18 21:00 UNV Albuterol Sulfate (Ventolin) 2.5 mg PRN Q4HRS PRN NEB SHORTNESS OF BREATH 05/06/18 16:30 Albuterol Sulfate (Ventolin) 2.5 mg RTQID NEB 05/06/18 20:00 05/07/18 05:45 Budesonide (Pulmicort) 0.5 mg RTBID NEB 05/06/18 20:00 05/06/18 21:35 Regadenoson (Lexiscan) 0.4 mg 1X ONCE IV 05/07/18 07:30 05/07/18 07:31 DC I & O 05/07/18 00:00 Intake Total 730 ml Balance 730 ml Orders Procedure Category Date Status Time Basic Metabolic Panel LAB 05/06/18 Complete 12:12 Cbc W Autodiff LAB 05/06/18 Complete 12:12 Hepatic Panel LAB 05/06/18 Complete 12:12 Lipase LAB 05/06/18 Complete 12:12 Troponin I LAB 05/06/18 Complete 12:12 Pulse Oximetry: REINA 05/06/18 In Process Standing Order 06:14 Bp Monitoring ER 05/06/18 Transmitted 12:12 Supervisor Lathing ER 05/06/18 Transmitted 12:12 Continuous Pulse ER 05/06/18 Transmitted Oximetry 12:12 Saline Lock ER 05/06/18 Transmitted 12:12 Vital Signs ER 05/06/18 Transmitted 12:12 Chest Ap Only RAD 05/06/18 Resulted 12:12 12 Lead Ekg EKG 05/06/18 Complete 12:22 Admit Orders ADT 05/06/18 Transmitted Echocardiogram ECHO 05/06/18 Resulted 15:26 Troponin I LAB 05/06/18 Complete 18:26 Troponin I LAB 05/07/18 Complete 00:26 Hemogram LAB 05/07/18 Complete 05:00 Comprehensive LAB 05/07/18 Complete Metabolic Panel 05:00 Consult Physician By CONS 05/06/18 Transmitted Name 15:26 Cardiac DIET 05/06/18 Complete Dinner Consult Physician By CONS 05/06/18 Transmitted Name 15:34 Lipid Panel LAB 05/06/18 In Process 15:35 Apply Kleber Stockings REINA 05/06/18 In Process And Dat Wr 15:52 Pneumatic Compression REINA 05/06/18 In Process Device 15:52 Nitroglycerin PHA 05/06/18 In Process Sublingual (Nitrostat) 15:45 Clopidogrel Bisulfate PHA 05/07/18 In Process (Plavix) 08:00 Levothyroxine PHA 05/07/18 In Process (Synthroid) 07:30 Meloxicam (Mobic) PHA 05/07/18 In Process 09:00 Pantoprazole PHA 05/07/18 In Process (Protonix) 09:00 Nothing By Mouth DIET 05/07/18 Transmitted Breakfast Mpi Spect 1day NM 05/07/18 Logged Rest&Stress Pha 08:00 Albuterol Sulfate PHA 05/06/18 In Process (Ventolin) 16:30 Albuterol Sulfate PHA 05/06/18 In Process (Ventolin) 20:00 Airway Inhalation RT 05/06/18 Complete Treatment 16:21 Airway Inhalation RT 05/06/18 Complete Treatment 16:21 Budesonide (Pulmicort) PHA 05/06/18 In Process 20:00 Lipid Panel LAB 05/07/18 In Process 05:00 Thyroid Stim Hormone LAB 05/06/18 In Process (Tsh) 20:57 Airway Inhalation RT 05/07/18 Complete Treatment 09:00 Airway Inhalation RT 05/07/18 Logged Treatment 13:00 Airway Inhalation RT 05/07/18 Logged Treatment 17:00 Airway Inhalation RT 05/07/18 Logged Treatment 21:00 Airway Inhalation RT 05/08/18 Logged Treatment 09:00 Airway Inhalation RT 05/08/18 Logged Treatment 13:00 Airway Inhalation RT 05/08/18 Logged Treatment 17:00 Airway Inhalation RT 05/08/18 Logged Treatment 21:00 Airway Inhalation RT 05/09/18 Logged Treatment 09:00 Airway Inhalation RT 05/09/18 Logged Treatment 13:00 Airway Inhalation RT 05/09/18 Logged Treatment 17:00 Airway Inhalation RT 05/09/18 Logged Treatment 21:00 Airway Inhalation RT 05/10/18 Logged Treatment 09:00 Airway Inhalation RT 05/10/18 Logged Treatment 13:00 Airway Inhalation RT 05/10/18 Logged Treatment 17:00 Airway Inhalation RT 05/10/18 Logged Treatment 21:00 Airway Inhalation RT 05/11/18 Logged Treatment 09:00 Airway Inhalation RT 05/11/18 Logged Treatment 13:00 Airway Inhalation RT 05/11/18 Logged Treatment 17:00 Airway Inhalation RT 05/11/18 Logged Treatment 21:00 Airway Inhalation RT 05/07/18 Logged Treatment 09:00 Airway Inhalation RT 05/07/18 Logged Treatment 21:00 Airway Inhalation RT 05/08/18 Logged Treatment 09:00 Airway Inhalation RT 05/08/18 Logged Treatment 21:00 Airway Inhalation RT 05/09/18 Logged Treatment 09:00 Airway Inhalation RT 05/09/18 Logged Treatment 21:00 Airway Inhalation RT 05/10/18 Logged Treatment 09:00 Airway Inhalation RT 05/10/18 Logged Treatment 21:00 Airway Inhalation RT 05/11/18 Logged Treatment 09:00 Airway Inhalation RT 05/11/18 Logged Treatment 21:00 Nm Injection NM 05/07/18 Taken Cv Stress Test NM 05/07/18 Logged Tracing Only Regadenoson (Lexiscan) PHA 05/07/18 Complete 07:30 Vital Signs Date Time Temp Pulse Resp B/P (MAP) Pulse Ox O2 Delivery O2 Flow Rate FiO2 05/07/18 05:45 95 Room Air 05/07/18 05:01 98.0 79 20 121/79 (93) ASIYA MARIA DO May 07, 2018 09:30
[2018-05-07 10:37] VITALS: BP 120/76
[2018-05-07] MEDS: BUDESONIDE 0.5 MG/2 ML NEBU NEB SCH (11:22)
--- NOTE | 2018-05-07 12:36 | RAD ---
MR#: [id number] Date of Study: 05/07/2018 Ordering Physician: OZZY FERREIRA, Referring Physician: IVÁN LYLE Tech: SAMANTA Canchola ARRT (Shayy) (N) APPROVED REPORT Test Type: Pharmacological Stress Nurse/Tech: PATITO Sawyer/DEBRA Canchola Test Indications: cp Cardiac History: See Electronic Medical Record Medications: See Electronic Medical Record Medical History: See Electronic Medical Record Resting ECG: sr Resting Heart Rate: 65 bpm Resting Blood Pressure: 118/72mmHg Pretest Chest Pain: None Nurse/Tech Notes SR, NO ACUTE CHANGES Consent: The procedure was explained to the patient in lay terms. Informed consent was witnessed. Yeison eout was entered into [employer]. History and Stress Test performed by SAMANTA Canchola ARRT (Shayy) (N) Pharm. Details Pharmacologic stress testing was performed using 0.4mg per 5ml of regadenoson given intravenously ove r 7-10 seconds. Stress Symptoms Nausea POST EXERCISE Reason for Termination: Infusion complete Target HR: No Max HR: 111 bpm 81% of Maximum Predicted HR: 136 bpm Exercise duration: 6 min:sec, Stage Max Blood Pressure: 128/76mmHg Blood Pressure response to exercise: Normal blood pressure response during stress. Chest Pain: No. Arrhythmia: No. ST Change: No. INTERPRETATION Stress EKG Conclusion: Baseline EKG showed sinus rhythm. No ischemic changes at peak stress. No arr hythmias. Imaging Protocol IMAGE PROTOCOL: Rest Tc-99m/stress Tc-99m 1 day Rest: Stress: Viability: Radiopharm.Tc99m [id number] Sestamibi Cvcp94cNv 34mCi Img Date 05/07/2018 05/07/2018 Inj-Img [id number]. 60min. Rest Admin Site:IV - Right AntecubitalAdministrator: SAMANTA Canchola ARRT (R)(N) Stress Admin Site: IV - Right AntecubitalAdministrator: SAMANTA Canchola ARRT (Shayy)(N) STRESS DATA End Diast. Vol.86.0mlAv. Heart Rate68.0bpm LVEDV index BSA2.0mlCardiac Output0.1L/min End Syst. Vol.22.0mlCO Index BSA4.4L/min LVESV index BSA0.0mlMyocardial Fqaa393.0g Eject. Ovrqbxgs83.0% Stress Rates Pk. Fill Rate3.23EDV/secLVtime Pk. Fill 176.18msec Pk. Empty Rate4.15ESV/secLVtime Pk. Hcwep587.03msec /3 Pk. Fill1.47EDV/sec Stress Scores Regional WT0.00Summed WT1.00 Regional WM0.00Summed WM0.00 Study quality was good. Left Ventricular size was Normal at Rest and Stress. Lung uptake was . Left Ventricular ejection fraction is 74%. The rest and stress images show normal perfusion, normal contraction and thickening. LV Perf. Quant 17 Seg. SSS0.00 17 Seg. SRS0.00 17 Seg. SDS0.00 Stress Defect Extent (% LAD)0.00Rest Defect Extent (% LAD)0.00Rev. Defect Extent (% LAD)0.00 Stress Defect Extent (% LCX) 0.00Rest Defect Extent (% LCX)0.00Rev. Defect Extent (% LCX)0.00 Stress Defect Extent (% RCA)0.00Rest Defect Extent (% RCA)0.00Rev. Defect Extent (% RCA)0.00 Stress Defect Extent (% TOMEKA)0.00Rest Defect Extent (% TOMEKA)0.00Rev. Defect Extent (% TOMEKA)0.00 Conclusion 1. Regadenoson cardioisotope stress test did not show any evidence of ischemia or infarct. 2. Normal left ventricular systolic function with ejection fraction calculated at 74%. 3. Low risk for cardiac events. Signed by : Anthony Call Electronically Approved : 05/07/2018 12:35:51
--- NOTE | 2018-05-07 14:56 | NUR ---
NURSING DISCHARGE NOTE: Patient discharged to home via ambulation and accompanied to her car by . Verbal and written medication and follow-up instructions were given and understanding was acknowledged.
== END 2018-05-07 14:55 | disposition home or self-care (01) ==
LOC: ER 12:10 → 1 SOUTH 15:01 → UNDOADMOB 15:01
PROVIDERS: ADMIT Neuromusculoskeletal Medicine & OMM; ATTEND Neuromusculoskeletal Medicine & OMM
DX: R07.89 Other chest pain (principal); E78.00 Pure hypercholesterolemia, unspecified; F17.210 Nicotine dependence, cigarettes, uncomplicated; G43.909 Migraine, unspecified, not intractable, without status migrainosus; J44.9 Chronic obstructive pulmonary disease, unspecified; E03.9 Hypothyroidism, unspecified; K21.9 Gastro-esophageal reflux disease without esophagitis; M19.90 Unspecified osteoarthritis, unspecified site; E78.5 Hyperlipidemia, unspecified; Z79.02 Long term (current) use of antithrombotics/antiplatelets; Z82.49 Family history of ischemic heart disease and other diseases of the circulatory system; Z90.49 Acquired absence of other specified parts of digestive tract
CPT/HCPCS: 36415; 71045; 78452; 80048; 80053; 80061; 80076; 83690; 84443; 84484; 85025; 85027; 93005; 93017; 93306; 94640; 99285; A9500; G0378; J2785; J7613; J7626; 96374; 96375; 96376; G0379

== ENCOUNTER 2019-10-27 19:15 | Emergency (ER) | payer OTHER ==
[~2019-10-27] VITALS: Ht 170.2 cm; Wt 68.2 kg
[~2019-10-27 19:15] MED LIST changes: +ALBU2.5V8 IH; +ALBU2.5V8 INH; -ALBU8.5H8 INH; +FLUT1DIS5 IH; +LEVO75TA5 PO
--- NOTE | 2019-10-27 19:26 | PHYS DOC ---
Past History Past Medical History: Arthritis, Asthma, GERD, Hypothyroid, Migraines, Other (SANDEEP HDEZ DO) Past Surgical History: Appendectomy, Tubal ligation, Other (SANDEEP HDEZ DO) Smoking: Less than 1pk/day Alcohol Use: Occasionally Drug Use: None (SANDEEP HDEZ DO) Adult General Chief Complaint Chief Complaint: RUQ ABDOMINAL PAIN RADIATING TO R SHOULDER [facility] HPI Patient is a 59-year-old female who was brought here by EMS for evaluation of right upper quadrant abdominal pain, epigastric abdominal pain radiating to her right shoulder started about an hour ago while she was seen in general. Patient denies any trouble breathing, no chest pain. Patient denies any history of acid reflux or gallbladder problem. Patient denies any history of heart problem. Patient denies any cough or fever. Patient described the pain as aching in nature radiated to her right shoulder. Patient drinks socially. (SANDEEP HDEZ DO) Review of Systems Review of Systems Constitutional: Denies fever or chills [] Eyes: Denies change in visual acuity, redness, or eye pain [] HENT: Denies nasal congestion or sore throat [] Respiratory: Denies cough or shortness of breath [] Cardiovascular: No additional information not addressed in HPI [] GI: Positive for abdominal pain, NO nausea, vomiting, bloody stools or diarrhea [] : Denies dysuria or hematuria [] Musculoskeletal: Denies back pain or joint pain [] Integument: Denies rash or skin lesions [] Neurologic: Denies headache, focal weakness or sensory changes [] Endocrine: Denies polyuria or polydipsia [] All other systems were reviewed and found to be within normal limits, except as documented in this note. (SANDEEP HDEZ DO) Allergies Allergies Allergies Coded Allergies Type Severity Reaction Last Updated Verified aspirin Allergy Intermediate 05/07/18 Yes codeine Allergy Intermediate 05/07/18 Yes morphine Allergy Intermediate 05/07/18 Yes (SANDEEP HDEZ DO) Physical Exam Physical Exam Constitutional: Well developed, well nourished, no acute distress, non-toxic appearance. [] HENT: Normocephalic, atraumatic, bilateral external ears normal, oropharynx moist, no oral exudates, nose normal. [] Eyes: PERRLA, EOMI, conjunctiva normal, no discharge. [] Neck: Normal range of motion, no tenderness, supple, no stridor. [] Cardiovascular:Heart rate regular rhythm, no murmur [] Lungs & Thorax: Bilateral breath sounds clear to auscultation [] Abdomen: Bowel sounds normal, soft, there is tenderness in epigastric area and RUQ area, no masses, no pulsatile masses. [] Skin: Warm, dry, no erythema, no rash. [] Back: No tenderness, no CVA tenderness. [] Extremities: No tenderness, no cyanosis, no clubbing, ROM intact, no edema. [] Neurologic: Alert and oriented X 3, normal motor function, normal sensory function, no focal deficits noted. [] Psychologic: Affect normal, judgement normal, mood normal. [] (SANDEEP HDEZ DO) EKG EKG EKG done at 1930, rate of 63 bpm ,sinus rhythm, no ST segment elevation (SANDEEP HDEZ DO) Radiology/Procedures Radiology/Procedures [] (SANDEEP HDEZ DO) Radiology/Procedures GB US: cholelthiasis without secondary evidence of cholecystitis. (SÁNCHEZ MIKE DO) Course & Med Decision Making Course & Med Decision Making Pertinent Labs and Imaging studies reviewed. (See chart for details) CARE OF PATIENT WAS TURNED OVER TO DR. SÁNCHEZ MIKE AT 8 PM, PENDING LAB AND ULTRASOUND RESULTS. (SANDEEP HDEZ DO) Course & Med Decision Making Patient asymptomatic in my evaluation. Lab, reviewed and unremarkable. Recommend supportive care with PCP follow-up watchful waiting. Return precautions reviewed. Patient verbalizes understanding and agreement discharge instructions prior to departure. (SÁNCHEZ MIKE DO) Dragon Disclaimer Dragon Disclaimer This electronic medical record was generated, in whole or in part, using a voice recognition dictation system. (SANDEEP HDEZ DO) Departure Departure: Impression: Primary Impression: Upper abdominal pain Disposition: 01 HOME, SELF-CARE Condition: STABLE Referrals: HI SIMMONS (PCP) Patient Instructions: Abdominal Pain (Nonspecific) Additional Instructions: You were evaluated emergency department for abdominal pain radiating to right shoulder. Lab and imaging studies were performed and are nondiagnostic. Avoid starchy and fatty foods, alcohol and caffeine. Please continue and acid and take Pepcid as directed. Follow-up with your PCP in 2-3 days for reevaluation. Return to the ED if new or worsening symptoms. Scripts Famotidine (PEPCID) 20 Mg Tablet 1 TAB PO BID, #60 TAB 3 Refills Prov: SÁNCHEZ MIKE DO 10/27/19 SANDEEP HDEZ DO Oct 27, 2019 19:26 SÁNCHEZ MIKE DO Oct 27, 2019 21:29
[2019-10-27 19:57] LABS: BASO % 1 % (0-3); EOS # 0.1 x10^3/uL (0.0-0.7); EOS % 2 % (0-3); HEMOGLOBIN 13.2 g/dL (12.0-15.5); LYMPH # 3.4 x10^3/uL (1.0-4.8); LYMPH % 56 % (24-48); MEAN CORPUSCULAR HEMOGLOBIN 32 pg (25-35); MEAN CORPUSCULAR HGB CONC 34 g/dL (31-37); MEAN CORPUSCULAR VOLUME 94 fL (79-100); MONO # 0.5 x10^3/uL (0.0-1.1); MONO % 9 % (0-9); NEUT % 33 % (31-73); PLATELET COUNT 229 x10^3/uL (140-400); RED BLOOD COUNT 4.14 x10^6/uL (3.50-5.40); RED CELL DISTRIBUTION WIDTH 12.8 % (11.5-14.5); WHITE BLOOD COUNT 6.1 x10^3/uL (4.0-11.0)
[2019-10-27 20:03] LABS: BACTERIA,URINE 0 /HPF (0-FEW); BILIRUBIN,URINE NEG (NEG); CLARITY,URINE CLEAR; COLOR,URINE YELLOW; GLUCOSE,URINE NEG (NEG); NITRITE,URINE NEG (NEG); SQUAMOUS EPITHELIAL CELL,UR OCC /LPF; UROBILINOGEN,URINE 0.2 mg/dL (0.2 mg/dL); WBC,URINE OCC /HPF (0-4)
[2019-10-27 20:06] LABS: CALCIUM 9.3 mg/dL (8.5-10.1); CREATININE 0.8 mg/dL (0.6-1.0); GFR 72.9; POTASSIUM 3.9 mmol/L (3.5-5.1)
[2019-10-27 20:12] LABS: ALBUMIN/GLOBULIN RATIO 1.5 (1.0-1.7); TOTAL BILIRUBIN 0.4 mg/dL (0.2-1.0); TOTAL PROTEIN 6.6 g/dL (6.4-8.2)
--- NOTE | 2019-10-27 21:18 | RAD ---
Exam: Ultrasound abdomen limited Indication: Right upper quadrant pain Technique: Real-time grayscale and color Doppler images of the right upper quadrant were obtained by the department clammer. Comparisons: None FINDINGS: Liver demonstrates homogenous echotexture. Hepatopedal flow noted within the portal vein. Gallbladder is normal in sonographic appearance. Common bile duct measures 5 mm in diameter. A single gallstone noted within the dependent portion of the gallbladder. No wall thickening. Right kidney measures 10.1 cm in length. No hydronephrosis. Visual is portions aorta and IVC are unremarkable. IMPRESSION: 1. Cholelithiasis without other secondary evidence for acute cholecystitis. 2. Normal sonographic appearance of the liver. 3. No right-sided hydronephrosis. Electronically signed by: Ivan Rucker MD (10/27/2019 9:15 PM) [id number]
[2019-10-27] MEDS ORDERED: FAMO-63 PO (21:28)
[2019-10-27 21:39] VITALS: BP 154/90
--- NOTE | 2019-10-27 23:52 | EKG ---
[address] [address] Test Date: 2019-10-27 Test Time: 19:30:37 Pat Name: ESHA CANALES Department: Room: Gender: F Ccu Nurse: : 1960 Requested By: SANDEEP HDEZ Order Number: [id number] Reading MD: Measurements Intervals [place] Rate: 63 P: 59 NV: 172 QRS: 45 QRSD: 92 T: 33 QT: 420 QTc: 433 Interpretive Statements SINUS RHYTHM NO SPECIFIC ECG ABNORMALITIES RI6.01 No previous ECG available for comparison
== END 2019-10-27 21:38 | disposition home or self-care (01) ==
LOC: ER 19:15
DX: R10.11 Right upper quadrant pain (principal); R10.13 Epigastric pain; M19.90 Unspecified osteoarthritis, unspecified site; J45.909 Unspecified asthma, uncomplicated; K21.9 Gastro-esophageal reflux disease without esophagitis; E03.9 Hypothyroidism, unspecified; G43.909 Migraine, unspecified, not intractable, without status migrainosus; Z90.49 Acquired absence of other specified parts of digestive tract; Z98.51 Tubal ligation status; F17.200 Nicotine dependence, unspecified, uncomplicated; Z88.5 Allergy status to narcotic agent; Z88.6 Allergy status to analgesic agent
CPT/HCPCS: 36415; 76705; 80053; 81001; 83690; 84484; 85025; 85610; 85730; 93005; 99285

== ENCOUNTER → 2021-08-27 | Outpatient (CLI) | payer OTHER ==
[~2021-08-27] MED LIST changes: +FAMO-63 PO; -MOME17SP NS; +MOME17SP5 NS
--- NOTE | 2021-08-28 09:36 | RAD ---
Exam Date: 08/27/2021 8:50 AM XR KNEE _3 VIEWS_LT Indication: Reason: ACUTE KNEE PAIN / Spl. Instructions: / History: . FINDINGS/ IMPRESSION: No acute fracture or dislocation. Alignment and joint spaces are maintained. The soft tissues are w ithin normal limits. Electronically signed by: Prasanna Lewis MD (08/28/2021 9:34 AM) [id number]
--- NOTE | 2021-08-28 09:37 | RAD ---
Exam Date: 08/27/2021 8:50 AM XR LUMBAR SPINE 4+V Indication: Reason: LEFT SIDED SCIATICA / Spl. Instructions: / History: . FINDINGS/ IMPRESSION: There is greater anterolisthesis of L4 and L5. Mild to moderate disc space narrowing is seen at mult iple levels with small osteophytes and mild facet joint arthropathy. The vertebral body heights are maintained without evidence of compression fracture. No pars defect is seen on either side. Degenerative changes are seen in the SI joints. Vascular calcifications are noted. Electronically signed by: Prasanna Lewis MD (08/28/2021 9:35 AM) [id number]
== END ==
LOC: RAD 08:48
PROVIDERS: ATTEND Physician Assistant Medical
DX: M43.16 Spondylolisthesis, lumbar region (principal); M48.061 Spinal stenosis, lumbar region without neurogenic claudication; M48.8X6 Other specified spondylopathies, lumbar region; M25.78 Osteophyte, vertebrae; M46.1 Sacroiliitis, not elsewhere classified; M25.562 Pain in left knee; M54.42 Lumbago with sciatica, left side
CPT/HCPCS: 72110; 73562